=== PATIENT | male | born 1965 | race Caucasian/White ===

== ENCOUNTER 2021-12-24 15:21 | Emergency (ER) | payer OTHER, SELFPAY ==
[2021-12-24 15:23] VITALS: BMI 30.5
--- NOTE | 2021-12-24 15:24 | ECG_ITS ---
Test Reason : palpitations Blood Pressure : / mmHG Vent. Rate : 061 BPM Atrial Rate : 061 BPM P-R Int : 144 ms QRS Dur : 086 ms QT Int : 378 ms P-R-T Axes : 064 019 030 degrees QTc Int : 380 ms Normal sinus rhythm Possible Left atrial enlargement Borderline ECG No previous ECGs available Referred By: Generic ED Physician Electronically Signed By:SHILPI RUFF MD
[2021-12-24 15:25] VITALS: BP 141/88; PULSE 65; RESP 16; TEMP 36.9; O2SAT 98; BMI 30.5
[2021-12-24 16:51] LABS: Hematocrit 44.4 % (42.0-52.0); Hemoglobin 15.3 g/dl (14.0-18.0); Mean Corpuscular HGB Conc 34.5 g/dl (31.0-36.0); Mean Corpuscular Hemoglobin 32.8 pg (27.0-33.0); Mean Corpuscular Volume 95.3 fL (80.0-98.0); Mean Platelet Volume 9.1 fL (9.4-12.4); Platelet Count 189 X10*3/uL (160-400); Red Blood Count 4.66 X10*6/uL (4.60-5.80); Red Cell Distribution Width 11.9 % (11.0-16.0); White Blood Count 5.5 X10*3/uL (4.8-10.8)
[2021-12-24 17:06] LABS: Alanine Aminotransferase 30 U/L (0-40); Albumin Level 4.7 g/dL (3.5-5.0); Alkaline Phosphatase 69 U/L (39-117); Anion Gap 14 (12-20); Aspartate Amino Transferase 21 U/L (5-37); Bilirubin Total 0.5 mg/dL (0.0-1.0); Blood Urea Nitrogen 20 mg/dL (9-16); Calcium 9.4 mg/dL (8.4-10.2); Carbon Dioxide 27 mmol/L (22-29); Chloride 104 mmol/L (96-108); Creatinine Clr Calc Pharmacy 78.4; Estimated Glomerular Filt Rate > 60; Glucose Random 121 mg/dL (60-115); Potassium 4.3 mmol/L (3.3-5.1); Sodium 141 mmol/L (135-145); Total Protein 7.2 g/dL (6.5-8.0)
[2021-12-24 17:12] LABS: Troponin-I High Sensitivity < 3.5 ng/L (<3.5-35.0)
--- NOTE | 2021-12-24 19:45 | ED.ARRPALP ---
HPI - Arrhythmia/Palpitations General Chief Complaint: Arrhythmia/Palpitations Stated Complaint: heart palpitions Time Seen by Provider: 12/24/21 19:35 Source: patient Mode of arrival: ambulatory Limitations: no limitations History of Present Illness HPI narrative: Patient comes to the emergency room complaining of occasional palpitations and skipped heartbeats. Patient states that he does not have any chest pain or shortness of breath. Patient works out 5 days a week, usually during workouts he has no symptoms, notices more the palpitations/skipped heartbeats when he is at rest laying down. At this time, patient is asymptomatic. Related Data Allergies Allergy/AdvReac Type Severity Reaction Status Date / Time No Known Allergies Allergy Unverified 02/07/20 15:23 Review of Systems Review of Systems: Constitutional : No Weight loss, No Fever, No Chills, No Night Sweats, No Fatigue, No Malaise ENT/Mouth : No Hearing loss, No Ear Pain, No Nasal Congestion, No Sinus Pain, No Hoarseness, No sore throat, No Rhinorrhea, No Swallowing Difficulty Eyes: No Eye Pain, No Swelling, No Redness, No Foreign Body, No Discharge, No Vision Changes Cardiovascular : No Chest Pain, No SOB, No Dyspnea on Exertion, No Orthopnea, No Edema, occasional palpitations or skipped heartbeats Respiratory : No Cough, No Sputum, No Wheezing, No Smoke Exposure, No Dyspnea Gastrointestinal : No Nausea, No Vomiting, No Diarrhea, No Constipation, No abdominal Pain, No Hematochezia, No Melena Genitourinary : no irregular bleeding, No Dysuria, No Urinary Frequency, No Hematuria, No Urinary Incontinence, No Urgency, No Flank Pain, No Urinary Flow Changes, No Hesitancy Musculoskeletal : No joint pain, No Myalgias, No Joint Swelling Skin : No Skin Lesions, No rash Neuro : No Weakness, No Numbness, No Paresthesias, No Loss of Consciousness, No Dizziness, No Headache Psych : No Anxiety/Panic, No Depression, No SI/HI/AH/VH, No Social Issues, Heme/Lymph: No Bruising, No Bleeding,No Lymphadenopathy Endocrine : No Polyuria, No Polydipsia, No Temperature Intolerance PMFSH Social History Social History Advance Directives: No Advance Directives Information Provided: No Physical Exam Vital Signs: Vital Signs: Last Vital Signs Temp 98.4 F 12/24/21 15:25 Pulse 65 12/24/21 15:25 Resp 16 12/24/21 15:25 BP 141/88 H 12/24/21 15:25 Pulse Ox 98 12/24/21 15:25 O2 Del Method 12/24/21 15:25 BMI result Body Mass Index 30.5 Const: Other: Appearance: Alert. Oriented X3. No acute distress. Eyes: Pupils equal, round and reactive to light. ENT: Pharynx normal. Neck: Normal inspection. Neck supple. No lymph nodes noted. No crepitus CVS: Normal heart rate and rhythm. Pulses normal. Normal S1 and S2 Respiratory: No respiratory distress. Breath sounds normal. No Wheezing. No rales Abdomen: Soft and nontender. No rigidity. No distention. Skin: Skin warm and dry. Normal skin color. Normal skin turgor. Extremities: No lower extremity edema. No Lacerations. No Rash Neuro: Oriented X 3. No motor deficit. No sensory deficit. Moving all extremities. No slurred speech. CN 2 through 12 grossly intact Psych: calm, cooperative, normal affect Course Course Course Narrative: Patient has been in the monitor, patient is bradycardic. However, patient is athletic and works out every day. I discussed with the patient that he would benefit from a Holter monitor evaluation. Here in the emergency room, patient has been on the monitor and no PVCs or abnormalities have been captured EKG shows normal sinus rhythm, heart rate 61, no ST segment depressions or elevations, no T-wave inversion, QTC 380 MDM - Arrhythmia/Palpitations Lab Data Result diagrams: 12/24/21 16:45 12/24/21 16:45 Labs: Lab Results 12/24/21 12/24/21 12/24/21 Range/Units 16:45 16:45 16:45 WBC 5.5 (4.8-10.8) X10*3/uL RBC 4.66 (4.60-5.80) X10*6/uL Hgb 15.3 (14.0-18.0) g/dl Hct 44.4 (42.0-52.0) % MCV 95.3 (80.0-98.0) fL MCH 32.8 (27.0-33.0) pg MCHC 34.5 (31.0-36.0) g/dl RDW 11.9 (11.0-16.0) % Plt Count 189 (160-400) X10*3/uL MPV 9.1 L (9.4-12.4) fL Absolute Nucleated RBC 0.000 (0.0-0.012) X10*3/uL Nucleated RBC % (auto) 0.0 (0.0-0.2) /100WBC Sodium 141 (135-145) mmol/L Potassium 4.3 (3.3-5.1) mmol/L Chloride 104 (96-108) mmol/L Carbon Dioxide 27 (22-29) mmol/L Anion Gap 14 (12-20) BUN 20 H (9-16) mg/dL Creatinine 1.18 (0.5-1.4) mg/dL Estim Creat Clear Calc 78.4 Estimated GFR > 60 Random Glucose 121 H (60-115) mg/dL Calcium 9.4 (8.4-10.2) mg/dL Total Bilirubin 0.5 (0.0-1.0) mg/dL AST 21 (5-37) U/L ALT 30 (0-40) U/L Alkaline Phosphatase 69 (39-117) U/L Troponin I High Sens < 3.5 (<3.5-35.0) ng/L Total Protein 7.2 (6.5-8.0) g/dL Albumin 4.7 (3.5-5.0) g/dL Discharge Plan Discharge Clinical Impression: Palpitations Patient Disposition: Home, Self-Care Instructions: Heart Palpitations (ED) Additional Instructions: Please follow-up with your primary care physician tomorrow. If you have any worsening or new symptoms, please return to the emergency room or call 911 Referrals: Mahesh Steven MD [Physician] - 5 days
== END 2021-12-24 20:01 | disposition home or self-care (01) ==
PROVIDERS: Emergency Provider Emergency Medicine; PCP Internal Medicine
DX: R00.2 Palpitations (principal)
CPT/HCPCS: 36415; 80053; 84484; 85027; 93005; 99283

== ENCOUNTER → 2022-01-04 13:45 | Outpatient (BNVA) | payer OTHER, SELFPAY | PROVIDERS: PCP Internal Medicine; Visit Provider Physician Assistant Medical | DX: R00.2 Palpitations (principal) | CPT/HCPCS: 99203 ==

== ENCOUNTER 2022-01-27 08:23 | Outpatient (REF) | payer OTHER, SELFPAY ==
[2022-01-27 10:11] LABS: Cholesterol 210 mg/dL; HDL Cholesterol 45 mg/dL; LDL Cholesterol Calculated 131 mg/dl; Triglycerides 174 mg/dL
[2022-01-27 10:20] LABS: TSH reflex Free T4 1.41 uIU/mL (0.32-4.0)
== END 2022-01-27 08:24 | disposition home or self-care (01) ==
LOC: HO.LAB 08:23
PROVIDERS: PCP Internal Medicine; Visit Provider Internal Medicine Cardiovascular Disease
DX: R00.2 Palpitations (principal); I25.10 Atherosclerotic heart disease of native coronary artery without angina pectoris
CPT/HCPCS: 36415; 80061; 84443; 99202

== ENCOUNTER → 2022-01-28 09:24 | Outpatient (REF) | payer OTHER, SELFPAY ==
--- NOTE | 2022-01-28 09:26 | CA_ITS ---
Acquisition Time: 2022-01-28 09:38:00 Total Exercise Time: 00:14:09 Test Indications: CP Medications: SEE CHART Protocol: CARMEN Max HR: 171 BPM 103% of Pred: 166 BPM Max BP: 164/062 mmHG Max Work Load: 17.2 METS Exercise stress test with exercise 14 min 9 sec of Carmen protocol, achieving 103% MPHR 17.2 METs, without anginal symptoms, with frequent isolated PACs, with normotensive response to exercise, with EKG changes meeting criteria for ischemia which corrects quickly in recovery. Test reviewed with Dr Adamson EKG tracings reviewed with Dr Aadmson and will order a CTA or coronaries for further evaluation. Referred By: Murphy Adamson Overread By: RUTH CLEMENTS
== END ==
LOC: HO.CARD 09:24
PROVIDERS: PCP Internal Medicine; Visit Provider Internal Medicine Cardiovascular Disease
DX: R00.2 Palpitations (principal)
CPT/HCPCS: 93017

== ENCOUNTER 2022-02-23 05:56 | Outpatient (REF) | payer OTHER, SELFPAY ==
[2022-02-23 08:29] LABS: Anion Gap 17 (12-20); Blood Urea Nitrogen 19 mg/dL (9-16); Carbon Dioxide 25 mmol/L (22-29); Chloride 103 mmol/L (96-108); Estimated Glomerular Filt Rate > 60; Glucose Random 92 mg/dL (60-115); Potassium 4.2 mmol/L (3.3-5.1); Sodium 141 mmol/L (135-145)
== END 2022-02-23 05:57 | disposition home or self-care (01) ==
LOC: HO.LAB 05:56
PROVIDERS: PCP Internal Medicine; Visit Provider Nurse Practitioner Family
DX: R94.39 Abnormal result of other cardiovascular function study (principal); R07.89 Other chest pain
CPT/HCPCS: 36415; 80048

== ENCOUNTER → 2022-02-24 06:59 | Outpatient (REF) | payer OTHER, SELFPAY ==
--- NOTE | 2022-02-24 07:02 | HM_ITS ---
Conclusion: 1. Patient was monitored for total period of 3 days and 1 hour 2. Baseline was normal sinus rhythm with average heart of 64 beats per minute minimal heart rate of 40 beats per minute 3. Frequent sinus bradycardia with heart rate below 60 beats per minute 48% of the time 4. No significant pauses noted 5. Total of 5003 PACs accounting for 1.82% total beats account for frequent PACs 6. Patient reported 1 event without symptoms reported correlated with isolated PVCs which overall rare MTDD
--- NOTE | 2022-02-24 07:02 | CA_ITS ---
Transthoracic Echocardiogram Patient (Last, First, Middle): Joaquín Lundberg F Gender: Male Date of : 1965 Age: 56 Procedure Date: 02/24/2022 Procedure Type: Transthoracic Echocardiogram Location: OP Height: 172.72 cm Weight: 88.45 kg BSA: 2.02 m2 Heart Rate: 44 bpm BP: 135 / 85 mmHg Patient Assessment Coordinator: XIN Referring MD: Murphy Adamson MD Confectionery Drops Machine Operator: Murphy Adamson MD Symptoms: R00.2 - Palpitations Study Quality: Good ECG Rhythm: Bradycardia Conclusions: - Normal study Findings Left Ventricle Normal left ventricular size, thickness, and systolic function. The visually estimated ejection fraction is between 65-70%. Diastolic function is normal for age. Right Ventricle Normal right ventricular cavity size and systolic function. Atria Both atria are normal in size. There is lipomatous hypertrophy of the interatrial septum. There is no evidence of interatrial shunt. Aortic Valve Normal aortic valve structure and function. There is no aortic valve stenosis. There is no aortic valve regurgitation. Mitral Valve Normal mitral valve structure and function. There is trace mitral valve regurgitation. There is no mitral valve stenosis. Pulmonic Valve The pulmonic valve is likely normal. Tricuspid Valve Normal tricuspid valve structure. There is trace tricuspid valve regurgitation. The right ventricular systolic pressure is normal. The right ventricular systolic pressure is 20 mmHg. Normal right atrial pressure. There is no evidence of pulmonary hypertension. Great Vessels All visible segments of the aorta are normal in size. The pulmonary artery was not well visualized. Venous The inferior vena cava is normal in size and collapses greater than 50% with inspiration. Pericardium/Pleural There is no evidence of pericardial effusion. Prior Study Comparison no previous study in the last 5 years for comparison Measurements 2D Linear Measurements IVSd: 0.86 0.6-0.9/0.6-1.0 cm LVIDd: 4.35 3.9-5.3/4.2-5.9 cm LVIDd Index: 2.15 2.4-3.2/2.2-3.1 cm/m2 LVIDs: 2.71 2.0-3.6 cm LVPWd: 1.14 0.7-1.1 cm LA Diam: 3.40 2.7-3.8/3.0-4.0 cm LAIDs Index: 1.68 1.5-2.3 cm/m2 LV Mass: 180.94 67-162/88-224 g LV Mass Index: 89.57 43-95/49-115 g/m2 LVOT Diam: 2.10 3.0+(-)1.3 cm 2D Systolic Function EF 4C: 65.90 >55% EF 2C: 72.60 >55% EF BiP: 69.40 >55% Mitral Valve MV Pk E: 0.83 MV PK A: 0.55 MV Decel Time: 283.00 E/A: 1.50 E'Lateral: 13.60 E'Medial: 7.94 E/E' Med: 10.50 E/E' Lat: 6.10 PHT: 83.00 MVA PHT: 2.65 Decel Whitfield: 2.94 Aortic Valve AoV Pk Iain: 1.21 AoV Mn Iain: 0.80 AoV VTI: 0.27 AoV Pk Grad: 6.00 Aov Mn Grad: 3.00 JASON Cont.VTI: 3.00 LVOT LVOT Pk Iain: 1.13 LVOT Mn Iain: 0.71 LVOT VTI: 0.24 LVOT Pk Grad: 5.00 LVOT Mn Grad: 2.00 LVOT Diam: 2.10 LVOT Area: 3.46 Diastolic Function MV Pk E: 0.83 MV Pk A: 0.55 E/A: 1.50 E'Medial: 7.94 E/E' Med: 10.50 E' Laterial: 13.60 E/E' Lat: 6.10 Right Ventricle TAPSE (mm): 27.20 TVS' Iain: 11.60 Tricuspid Valve TR Pk Iain: 2.08 TR Pk Grad: 17.00 RA Press: 3.00 RVSP: 20.00 Great Vessels Aorta Sinus of Valsalva: 3.20 2.0-3.5 cm Ao Asc: 3.30 2.1-3.4 cm Pulmonary Valve PV Pk Iain: 0.94 Peak PV Grad: 4.00 Updated in Other Vendor System with Status of Final Murphy Adamson MD electronically signed on 02/24/2022 6:39:21 PM with status of Final
== END ==
LOC: HO.CARD 06:59
PROVIDERS: PCP Internal Medicine; Visit Provider Internal Medicine Cardiovascular Disease
DX: R00.2 Palpitations (principal)
CPT/HCPCS: 93242; 93306

== ENCOUNTER → 2022-04-20 13:45 | Outpatient (BNVA) | payer OTHER, SELFPAY | PROVIDERS: PCP Internal Medicine; Visit Provider Internal Medicine Cardiovascular Disease | DX: I49.1 Atrial premature depolarization (principal) | CPT/HCPCS: 99212 ==

== ENCOUNTER 2022-09-28 06:50 | Outpatient (REF) | payer BC, SELFPAY ==
[2022-09-28 06:58] LABS: MANUAL DIFF FLAG NO
[2022-09-28 07:35] LABS: Basophils Percent Auto 0.4 % (0-2); Eosinophils Absolute Auto 0.1 X10*3/uL (0.0-0.4); Eosinophils Percent Auto 1.7 % (0-4); Hematocrit 43.4 % (42.0-52.0); Imm Gran Abs Auto 0.01 X10*3/uL (0.00-0.03); Imm Gran Pct Auto 0.2 % (0.0-0.4); Lymphocytes Absolute Auto 2.2 X10*3/uL (1.2-4.9); Lymphocytes Percent Auto 42.6 % (20-40); Mean Corpuscular HGB Conc 34.6 g/dl (31.0-36.0); Mean Corpuscular Hemoglobin 32.6 pg (27.0-33.0); Mean Corpuscular Volume 94.3 fL (80.0-98.0); Mean Platelet Volume 9.5 fL (9.4-12.4); Monocytes Absolute Auto 0.6 X10*3/uL (0.1-1.2); Monocytes Percent Auto 11.5 % (2-11); Neutrophils Absolute Auto 2.3 x10*3/uL (2.0-8.3); Neutrophils Percent Auto 43.6 % (45-73); Platelet Count 188 X10*3/uL (160-400); Red Cell Distribution Width 11.9 % (11.0-16.0); White Blood Count 5.2 X10*3/uL (4.8-10.8)
[2022-09-28 12:08] LABS: Alanine Aminotransferase 31 U/L (0-40); Albumin Level 4.6 g/dL (3.5-5.0); Alkaline Phosphatase 60 U/L (39-117); Anion Gap 13 (12-20); Aspartate Amino Transferase 24 U/L (5-37); Bilirubin Total 1.2 mg/dL (0.0-1.0); Blood Urea Nitrogen 21 mg/dL (9-16); Calcium 9.4 mg/dL (8.4-10.2); Carbon Dioxide 26 mmol/L (22-29); Chloride 107 mmol/L (96-108); Cholesterol 182 mg/dL; Estimated Glomerular Filt Rate 57; Glucose Random 95 mg/dL (60-115); HDL Cholesterol 42 mg/dL; LDL Cholesterol Calculated 106 mg/dl; Potassium 4.4 mmol/L (3.3-5.1); Sodium 142 mmol/L (135-145); Total Protein 6.7 g/dL (6.5-8.0); Triglycerides 173 mg/dL
[2022-09-28 12:31] LABS: Prostate Specific Antigen 0.24 ng/mL (<0.05-4.0); Vitamin D 25-OH Total 64.1 ng/mL (>30)
== END 2022-09-28 06:51 | disposition home or self-care (01) ==
LOC: HO.LAB 06:50
PROVIDERS: PCP Internal Medicine; Visit Provider Internal Medicine
DX: I10 Essential (primary) hypertension (principal); Z12.5 Encounter for screening for malignant neoplasm of prostate; Z13.21 Encounter for screening for nutritional disorder
CPT/HCPCS: 36415; 80053; 80061; 82306; 84153; 85025

== ENCOUNTER 2023-08-02 06:03 | Outpatient (REF) | payer BC, SELFPAY ==
[2023-08-02 06:25] LABS: MANUAL DIFF FLAG NO
[2023-08-02 07:17] LABS: Basophils Percent Auto 0.5 % (0-2); Eosinophils Absolute Auto 0.1 X10*3/uL (0.0-0.4); Eosinophils Percent Auto 1.5 % (0-4); Hematocrit 45.5 % (42.0-52.0); Hemoglobin 15.9 g/dl (14.0-18.0); Imm Gran Abs Auto 0.01 X10*3/uL (0.00-0.03); Imm Gran Pct Auto 0.2 % (0.0-0.4); Lymphocytes Absolute Auto 2.8 X10*3/uL (1.2-4.9); Lymphocytes Percent Auto 46.5 % (20-40); Mean Corpuscular HGB Conc 34.9 g/dl (31.0-36.0); Mean Corpuscular Hemoglobin 33.3 pg (27.0-33.0); Mean Corpuscular Volume 95.4 fL (80.0-98.0); Mean Platelet Volume 9.4 fL (9.4-12.4); Monocytes Absolute Auto 0.7 X10*3/uL (0.1-1.2); Monocytes Percent Auto 11.2 % (2-11); Neutrophils Absolute Auto 2.4 x10*3/uL (2.0-8.3); Neutrophils Percent Auto 40.1 % (45-73); Platelet Count 218 X10*3/uL (160-400); Red Blood Count 4.77 X10*6/uL (4.60-5.80)
[2023-08-02 07:44] LABS: Alanine Aminotransferase 36 U/L (0-40); Albumin Level 4.6 g/dL (3.5-5.0); Alkaline Phosphatase 70 U/L (39-117); Anion Gap 12 (12-20); Aspartate Amino Transferase 25 U/L (5-37); Bilirubin Total 0.5 mg/dL (0.0-1.0); Blood Urea Nitrogen 20 mg/dL (9-16); Calcium 9.6 mg/dL (8.4-10.2); Carbon Dioxide 28 mmol/L (22-29); Chloride 107 mmol/L (96-108); Cholesterol 205 mg/dL (<200); Estimated Glomerular Filt Rate > 60; Glucose Random 103 mg/dL (60-115); HDL Cholesterol 46 mg/dL (>40); LDL Cholesterol Calculated 136 mg/dL (<100); Potassium 4.9 mmol/L (3.3-5.1); Sodium 142 mmol/L (135-145); Total Protein 7.2 g/dL (6.5-8.0); Triglycerides 116 mg/dL (<150)
[2023-08-02 08:01] LABS: Prostate Specific Antigen 0.39 ng/mL (<0.05-4.0)
== END 2023-08-02 06:04 | disposition home or self-care (01) ==
LOC: HO.LAB 06:03
PROVIDERS: PCP Internal Medicine; Visit Provider Internal Medicine
DX: Z12.5 Encounter for screening for malignant neoplasm of prostate (principal); I10 Essential (primary) hypertension
CPT/HCPCS: 36415; 80053; 80061; 84153; 85025

== ENCOUNTER 2023-08-09 14:45 | Outpatient (REF) | payer BC, SELFPAY ==
[2023-08-15 19:49] LABS: Testosterone, Free 80.1 pg/mL (35.0-155.0); Testosterone, Total 616 ng/dL (250-1100)
== END 2023-08-09 14:46 | disposition home or self-care (01) ==
LOC: HO.LAB 14:45
PROVIDERS: PCP Internal Medicine; Visit Provider Internal Medicine
DX: R53.83 Other fatigue (principal)
CPT/HCPCS: 36415; 84402; 84403

== ENCOUNTER 2023-08-24 09:59 | Outpatient (REF) | payer BC, SELFPAY ==
[2023-08-25 08:49] LABS: Lyme Abs Screen <0.90 index
[2023-08-29 12:39] LABS: A phagocytophilum IgG <1:64 (<1:64); A phagocytophilum IgM <1:20 (<1:20)
== END 2023-08-24 10:00 | disposition home or self-care (01) ==
LOC: HO.MANLDS 09:59
PROVIDERS: Visit Provider Physician Assistant
DX: T14.8XXA Other injury of unspecified body region, initial encounter (principal); W57.XXXA Bitten or stung by nonvenomous insect and other nonvenomous arthropods, initial encounter
CPT/HCPCS: 36415; 86617; 86618; 86666

== ENCOUNTER 2025-02-12 07:51 | Outpatient (REF) | payer BC, SELFPAY ==
--- OUTSIDE RECORDS SUMMARY | 2025-02-12 07:53 | XMS_ITS | Clinical Summary ---
Author Organization [facility] Address [address] [place] [phone] Phone Care Team Providers Care Steeplechase Jockey Name Role Phone Emily Rajan DO Primary Care Provider [phone] Emily Rajan DO Unavailable Allergies Active Allergy Reactions Criticality Noted Date Comments Other 12/04/2024 Almonds wheezing Medications amLODIPine (NORVASC) 5 MG tablet Take by mouth daily. 11/15/2024 Active diclofenac sodium (VOLTAREN) 75 MG EC tablet Take 75 mg by mouth 2 (two) times a day. 11/30/2024 Active lisinopril (PRINIVIL,ZESTRI L) 5 MG tablet Take 5 mg by mouth daily. Active Encounters Date Type Department Care Team Description 12/07/2024 8:37 AM EDT Anesthesia Event [facility] Endoscopy Admitting Dept Virtual Department [address] [place] [phone] Fabiola Preciado MD 12/07/2024 8:30 AM EDT - 12/07/2024 9:00 AM EDT Surgery [facility] Admitting Dept Virtual Department [address] [place] [phone] Martell Hernandez MD COLONOSCOPY 12/07/2024 7:20 AM EDT - 12/07/2024 9:40 AM EDT Hospital Encounter [facility] Admitting Dept Virtual Department [address] [place] [phone] Martell Hernandez MD Discharge Disposition: Home or Self Care 12/07/2024 Procedure Pass [facility] Endoscopy Admitting Dept Virtual Department [address] [place] [address] 12/03/2024 2:30 PM EDT Pre-Admission Testing Pre Procedure Evaluation [address] [place] [address] Martell Hernandez MD from Last 3 Months Social History Tobacco Use Types Packs/Day Years Used Date Smoking Tobacco: Never Smokeless Tobacco: Never Tobacco Cessation:Counseling Given: Not Answered Alcohol Use Standard Drinks/Week Comments Not Currently 0 (1 standard drink = 0.6 oz pure alcohol) average 5-8/ week, on weekends socially Education Answer Date Recorded Are you interested in more education? Not on carlo e 08/28/2023 Are you concerned about learning? Not on file 08/28/2023 No 08/28/2023 No 08/28/2023 Digital Access Answer Date Recorded No 08/28/2023 No 08/28/2023 Reliable internet access at home? Not on file 08/28/2023 Device with a working camera? Not on file Intimate Partner Violence Answer Date R ecorded Are you denied basic needs s uch as food, clothing, or medical care? No 12/07/2024 In the past 12 months have y ou been in a relationship with a person who hurts, threatens, or tries to control you? No 12/07/2024 Are you denied basic needs s uch as food, clothing, or medical care? No 12/07/2024 In the past 12 months have y ou been in a relationship with a person who hurts, threatens, or tries to control you? No 12/07/2024 Sex and Gender Information Value Date Recorded Sex Assigned at Not on file Legal Sex Male 9:38 PM EDT Gender Identity Not on file Sexual Orientation Not on file Last Filed Vital Signs Vital Sign Reading Time Taken Comments Blood Pressure 117/78 12/07/2024 9:15 AM EDT Pulse 50 12/07/2024 9:15 AM EDT Temperature 35.8 C (96.5 F) 12/07/2024 9:01 AM EDT Respiratory Rate 12 12/07/2024 9:15 AM EDT Oxygen Saturation 99% 12/07/2024 9:15 AM EDT Inhaled Oxygen Concentration - - Weight 88.5 kg (195 lb) 12/04/2024 11:13 AM EDT Height 174 cm (5' 8.5 ) 03/04/2011 11:18 AM EDT Body Mass Index - - Plan of Treatment Health Maintenance Due Date Last Done Comments CREATININE LEVEL 1965 POTASSIUM LEVEL 1965 DEPRESSION SCREENING 1979 HEPATITIS C SCREENING 1985 HIV ONE-TIME SCREENING (18-6 5 YEARS) 1985 COLOGUARD 2012 FIT TEST 2012 FOBT 2012 SIGMOIDOSCOPY 2012 VIRTUAL COLONOSCOPY 2012 PNEUMOCOCCAL VACCINES (50+ years) (1 of 1 - PCV) 2017 ZOSTER VACCINES (1 of 2) 2017 INFLUENZA VACCINE (#1) 2024 , 03/09/2018, 07/11/2017 COVID-19 VACCINE (1 - 2023-2 5 season) 2025 LIPID PANEL 08/01/2028 08/02/2023, 09/28/2022, 09/28/2022 Adult Td,Tdap Booster 08/27/2032 08/27/2022 COLONOSCOPY 12/07/2034 12/07/2024 COLORECTAL CANCER SCREENING 12/07/2034 SMOKING STATUS SCREENING (On ce After 26 Yrs) Completed 12/07/2024 HEPATITIS A VACCINES Aged Out No long er eligible based on patient's age to complete this topic HIB VACCINES Aged Out No longer eligi ble based on patient's age to complete this topic MENINGOCOCCAL VACCINES (ACWY) Aged Out No longer eligible based on patient's age to complete this topic MENINGOCOCCAL VACCINES (B) Aged Out N o longer eligible based on patient's age to complete this topic Medical Devices Not on file Procedures Procedure Name Priority Date/Time Associated Diagnosis Comments ND COLSC FLX W/RMVL OF TUMOR POLYP LESION SNARE TQ 12/07/2024 8:36 AM EDT Family history of hyperplastic colonic polyp Special Needs DIRECT ND COLONOSCOPY W/BIOPSY SINGLE/MULTIPLE 12/07/2024 8:36 AM EDT Family history of hyperplastic colonic polyp Special Needs DIRECT ND COLONOSCOPY FLX DX W/COLLJ SPEC WHEN PFRMD 12/07/2024 8:36 AM EDT Family history of hyperplastic colonic polyp Special Needs DIRECT ENDOSCOPY, COLON 12/07/2024 8:30 AM EDT ANATOMIC PATHOLOGY Routine 12/07/2024 12 :00 AM EDT from Last 3 Months Results * ENDOSCOPY, COLON (12/07/2024 8:30 AM EDT) Narrative Transcriptions Martell Hernandez MD - 12/07/2024 8:30 AM EDT [facility] Patient Name: Lucien Aguila Attending MD:: MARTELL HERNANDEZ MD, Procedure Date: 12/07/2024 8:30 AM Date of : 1965 Age: 59 Admit Type: Outpatient Gender: Male Room: [place] [address] Referring MD: EMILY RAJAN DO Exam Type: Colonoscopy Indications: Screening patient at increased risk: Family historyof 1st-degree relative with colorectal cancer at age60 years (or older) Medications: Monitored Anesthesia Care Procedure: Informed consent was obtained from the patientafter discussion of the indications, limitations, alternatives, benefits, and risks of the procedure. Risks specifically discussed include but are not limited to medication reactions, missed lesions, bleeding, perforation, or the need for emergent surgery. Throughout the procedure, the patient's blood pressure, pulse, end-tidal CO2, and oxygensaturations were monitored continuously. The Olympus adult variable colonoscope [id number] #1 was introduced through the anus and advanced to the terminal ileum. The colonoscopy was performedwithout difficulty. The patient tolerated the procedurewell. The quality of the bowel preparation was good. Anatomical landmarks were photographed. Complications: No immediate complications. Estimated blood loss:None. Findings: The perianal and digital rectal examinations were normal. A 3 mm polyp was found in the ascending colon. The polyp was sessile. The polyp was removed with acold snare. Resection and retrieval were complete. Base fulgurated with hot snare to assure completeremoval The rectum, recto-sigmoid colon, sigmoid colon, descending colon, splenic flexure, transversecolon, hepatic flexure, cecum, appendiceal orifice,ileocecal valve, ileum, rectum (on retroflexion) andascending colon (on retroflexion) appeared normal. Impression: - One 3 mm polyp in the ascending colon, removedwith a cold snare. Resected and retrieved. - The rectum (on retroflexion), ascending colon (on retroflexion), rectum, sigmoid colon, descending colon, splenic flexure, transverse colon, hepatic flexure, cecum, recto-sigmoid colon, ileocecalvalve, appendiceal orifice and terminal ileum arenormal. Recommendation: - Discharge patient to home. - Resume previous diet. - Continue present medications. - Await pathology results. - Repeat colonoscopy in 5 years for surveillance. - I will send you pathology results by letter. If you do not getresults in 3 weeks telephone my office. MARTELL HERNANDEZ MD 12/07/2024 8:59:15 AM This report has been signed electronically. Number of Addenda: 0 Note Initiated On: 12/07/2024 8:30 AM Procedure Code(s): --- Professional --- 29070, Colonoscopy, flexible; with removal of tumor(s), polyp(s), or other lesion(s) by snare technique --- Technical --- 18646, Colonoscopy, flexible; with removal of tumor(s), polyp(s), or other lesion(s) by snare technique Diagnosis Code(s): --- Professional --- Z80.0, Family history of malignant neoplasm of digestive organs D12.2, Benign neoplasm of ascending colon --- Technical --- Z80.0, Family history of malignant neoplasm of digestive organs D12.2, Benign neoplasm of ascending colon CPT copyright 2021 [employer]. All rights reserved. The codes documented in this report are preliminary and upon structural steel worker reviewmay be revised to meet current compliance requirements. Procedure Date: 12/07/2024 8:30:[address] [place] [address] us Emily Rajan DO GI PROCEDURE ORDERABLES Final Re sult * Anatomic Pathology (12/07/2024 12:00 AM EDT) 12/07/2024 12/07/2024 10: 45 AM EDT Narrative SEE NARRATIVE - 12/10/2024 2:04 PM EDT [address] [address] Bending Shed Worker: Drake Alexis MD Surgical Pathology Report FINAL PATHOLOGIC DIAGNOSIS: ASCENDING COLON POLYP: Hyperplastic polyp with acute inflammation. Electronically Signed Out By Nadia Santamaria MD By his/her signature above, the pathologist listed as making the Final Diagnosis certifies that he/she has personally reviewed this case and confirmed or corrected the diagnosis. CLINICAL HISTORY Family history of hyperplastic colonic polyp [Z83.711] SPECIMENS SUBMITTED: A: ASCENDING COLON POLYP GROSS DESCRIPTION ASCENDING COLON POLYP: Received in formalin is a 0.5 x 0.3 x 0.2 cm irregular portion of gonzales-pink soft tissue which is submitted in toto in single cassette labeled A1. Grossed by: COLLEEN Dawson, PA(ASCP) T 12/07/2024 Grossing Staff: [id number] Patient Name: LUCIEN AGUILA : 1965 (Age: 59) Sex: M Institution: [facility] Location: [facility] Date of Operation: 12/07/2024 Date of Reported: 12/10/2024 14:04 Results To: Martell Hernandez MD, BS RAFAEL Faustin DO us Martell Hernandez MD PATHOLOGY ORDERABLES Final R esult SEE NARRATIVE from Last 3 Months Insurance [facility] [address] [place] Care Teams Steeplechase Jockey Relationship Specialty Start Date End Date Emily Rajan DO PCP - General 03/08/17 Emily Rajan DO [address] [place] [address] Insurance Assigned Provider 08/27/23 Additional Source Comments The information contained in this document represents components of the legal health record. It is not the complete legal health record.[facility]
--- OUTSIDE RECORDS SUMMARY | 2025-02-12 07:53 | XMS_ITS | Encounter Summary ---
Author Organization [facility] Address [address] [address] Phone Care Team Providers Care Collections Technician Name Role Phone Chester Pittman DO Primary Care Provider [phone] Chester Pittman DO Unavailable Encounter Details Date Type Department Care Team (Late st Contact Info) Description 12/07/2024 Procedure Pass [facility] Endoscopy Admitting Dept Virtual Department [address] [place] [address] Social History Tobacco Use Types Packs/Day Years Used Date Smoking Tobacco: Never Smokeless Tobacco: Never Alcohol Use Standard Drinks/Week Comments Not Currently [...] on file Sexual Orientation Not on file documented as of this encounter Plan of Treatment Not on file documented as of this encounter Visit Diagnoses Not on filedocumented in this encounter Care Teams Collections Technician Relationship Specialty Start Date End Date Chester Pittman DO PCP - General 03/08/17 Chester Pittman DO [address] [place] [address] Insurance Assigned Provider 08/27/23 documented as of this encounter Additional Source Comments The information contained in this document represents components of the legal health record. It is not the complete legal health record.[facility]
--- OUTSIDE RECORDS SUMMARY | 2025-02-12 07:53 | XMS_ITS | Encounter Summary ---
Author Organization [facility] Address [address] [address] Phone Care Team Providers Care Machine Adjuster Name Role Phone Chester Pittman DO Primary Care Provider [phone] Zain Chester Myrick DO Unavailable Zain Chester Myrick DO Unavailable Encounter Details Date Type Department Care Team (Late st Contact Info) Description 11/01/2017 Ancillary Orders [facility] External Provider Virtual Department [address] [place] [address] Mariana Mahan PA-C [address] [place] [address] Social History Tobacco Use Types Packs/Day Years Used Date Smoking Tobacco: Never Assessed Sex and Gender Information Value Date Recorded Sex Assigned at Not on file Legal Sex Male 9:38 PM EDT Gender Identity Not on file Sexual Orientation Not on file documented as of this encounter Plan of Treatment Not on file documented as of this encounter Visit Diagnoses Not on filedocumented in this encounter Care Teams Machine Adjuster Relationship Specialty Start Date End Date Chester Pittman DO PCP - General 03/08/17 Chester Pittman DO [address] [place] [address] Insurance Assigned Provider 08/29/1910/31 Chester Pittman DO [address] [place] [address] [email or web address] Insurance Assigned Provider 08/27/23 documented as of this encounter Additional Source Comments The information contained in this document represents components of the legal health record. It is not the complete legal health record.[facility]
--- OUTSIDE RECORDS SUMMARY | 2025-02-12 07:54 | XMS_ITS | Encounter Summary ---
Author Organization [facility] Address [address] [address] Phone Care Team Providers Care Forest Ranger Technician Name Role Phone Chester Pittman DO Primary Care Provider [phone] Zain Chester Myrick DO Unavailable Zain Chester Myrick DO Unavailable Encounter Details Date Type Department Care Team (Late st Contact Info) Description 11/14/2017 Ancillary Orders [facility] External Provider Virtual Department [address] [place] [address] Mariana Mahan PA-C [address] [place] [address] Social History Tobacco Use Types Packs/Day Years [...] on filedocumented in this encounter Care Teams Forest Ranger Technician Relationship Specialty Start Date End Date Chester Pittman DO PCP - General 03/08/17 Chester Pittman DO [address] [place] [id number] Insurance Assigned Provider 08/[birth year]10[birth year] Chester Pittman DO [address] [place] [address] [email or web address] Insurance Assigned Provider 08/27/23 documented as of this encounter Additional Source Comments The information contained in this document represents components of the legal health record. It is not the complete legal health record.[facility]
[2025-02-12 13:41] LABS: MANUAL DIFF FLAG NO
[2025-02-12 13:44] LABS: Hematocrit 44.4 % (42.0-52.0); Hemoglobin 15.6 g/dl (14.0-18.0); Imm Gran Abs Auto 0.01 X10*3/uL (0.00-0.03); Imm Gran Pct Auto 0.2 % (0.0-0.4); Lymphocytes Absolute Auto 2.3 X10*3/uL (1.2-4.9); Mean Corpuscular HGB Conc 35.1 g/dl (31.0-36.0); Mean Corpuscular Hemoglobin 33.3 pg (27.0-33.0); Mean Corpuscular Volume 94.7 fL (80.0-98.0); NRBC Abs Auto 0.000 X10*3/uL (0.0-0.012); NRBC Pct Auto 0.0 /100WBC (0.0-0.2); Platelet Count 234 X10*3/uL (160-400); Red Blood Count 4.69 X10*6/uL (4.60-5.80); White Blood Count 5.8 X10*3/uL (4.8-10.8)
[2025-02-12 14:13] LABS: Albumin Level 5.1 g/dL (3.5-5.0); Alkaline Phosphatase 77 U/L (39-117); Anion Gap 12 (12-20); Aspartate Amino Transferase 32 U/L (5-37); Blood Urea Nitrogen 17 mg/dL (9-16); Calcium 9.7 mg/dL (8.4-10.2); Carbon Dioxide 28 mmol/L (22-29); Chloride 106 mmol/L (96-108); Cholesterol 241 mg/dL (<200); Estimated Glomerular Filt Rate > 60; HDL Cholesterol 50 mg/dL (>40); Potassium 4.8 mmol/L (3.3-5.1); Sodium 141 mmol/L (135-145); Total Protein 7.4 g/dL (6.5-8.0); Triglycerides 113 mg/dL (<150)
[2025-02-12 14:38] LABS: Alanine Aminotransferase 37 U/L (0-40)
[2025-02-12 14:42] LABS: Prostate Specific Antigen 0.45 ng/mL (<0.05-4.0)
== END 2025-02-12 07:52 | disposition home or self-care (01) ==
LOC: HO.MANLDS 07:51
PROVIDERS: Visit Provider Internal Medicine
DX: Z12.5 Encounter for screening for malignant neoplasm of prostate (principal); I10 Essential (primary) hypertension
CPT/HCPCS: 36415; 80053; 80061; 84153; 85025

== ENCOUNTER 2025-03-12 06:02 | Outpatient (REF) | payer BC, SELFPAY ==
--- NOTE | ~2025-03-12 | XR_ITS ---
EXAMINATION: XR KNEE 3 VIEWS RIGHT HISTORY: Pain in right knee COMPARISON: There are no prior studies available for comparison. FINDINGS: Three views of the right knee are submitted. Osseous mineralization is normal. There is no fracture or dislocation. The joint spaces are preserved. The soft tissues are unremarkable. There is no joint effusion. XR/XR knee RT 3V IMPRESSION: Unremarkable examination of the right knee. Electronically signed by: Jose David Stephenson MD 03/12/2025 07:12 AM EDT
--- OUTSIDE RECORDS SUMMARY | 2025-03-12 06:04 | XMS_ITS | Encounter Summary ---
Author Organization [facility] Address [address] [address] Phone Care Team Providers Care Engineering Intern Name Role Phone Chester Pittman DO Primary Care Provider [phone] Zain Chester Myrick DO Unavailable Chester Pittman DO Unavailable Encounter Details Date Type Department Care Team (Late st Contact Info) Description 11/01/2017 Ancillary Orders [facility] External Provider Virtual Department [address] [place] [address] Mariana Mahan PA-C [address] [place] [address] [email or web address] Social History Tobacco Use Types Packs/Day Years [...] on filedocumented in this encounter Care Teams Engineering Intern Relationship Specialty Start Date End Date Chester Pittman DO PCP - General 03/08/17 Chester Pittman DO [address] [place] [address] [place] [address] Insurance Assigned Provider 08/29/[birth year]10/31 Chester Pittman DO [address] [place] [address] [email or web address] Insurance Assigned Provider 08/27/23 documented as of this encounter Additional Source Comments The information contained in this document represents components of the legal health record. It is not the complete legal health record.[facility]
--- OUTSIDE RECORDS SUMMARY | 2025-03-12 06:05 | XMS_ITS | Encounter Summary ---
Author Organization [facility] Address [address] [address] Phone Care Team Providers Care Maintenance Fitter Name Role Phone Chester Pittman DO Primary Care Provider [phone] Chester Pittman DO Unavailable Encounter Details Date Type Department Care Team (Late st Contact Info) Description 12/07/2024 Procedure Pass [facility] Endoscopy Admitting Dept Virtual Department [address] [place] [address] Social History Tobacco Use Types Packs/Day Years [...] on filedocumented in this encounter Care Teams Maintenance Fitter Relationship Specialty Start Date End Date Chester Pittman DO PCP - General 03/08/17 Chester Pittman DO [address] [place] [address] Insurance Assigned Provider 08/27/23 documented as of this encounter Additional Source Comments The information contained in this document represents components of the legal health record. It is not the complete legal health record.[facility]
--- OUTSIDE RECORDS SUMMARY | 2025-03-12 06:05 | XMS_ITS | Data Portability ---
Author Organization [facility], Telehealth Patient Home Address [address] [place] [address] Assessment Encounter Date Assessment Date Assessment LastModified by Organization Details LastModified Time 04/18/2024 04/18/2024 [id number] [place] [id number] (HOME CARE SPECIALIST) MDM MODERATE MUST MEET 2 OUT OF 3 ELEMENTS: PROBLEMS, DATA OR RISK ELEMENT 1: PROBLEMS ADDRESSED 1 OR MORE CHRONIC ILLNESS WITH EXACERBATION OR 2 OR MORE STABLE CHRONIC ILLNESSES OR 1 UNDIAGNOSED NEW PROBLEM OR 1 ACUTE ILLNESS W/SYMPTOMS OR 1 ACUTE COMPLICATED INJURY ELEMENT 2: DATA MUST MEET 1 OF 3 CATEGORIES CATEGORY 1: REVIEW OF PRIOR EXTERNAL NOTES, REVIEW OF RESULTS, ORDERING OF EACH TEST, ASSESSMENT REQUIRING INDEPENDENT HISTORIAN OR CATEGORY 2: INDEPENDENT INTERPRETATION OF TESTS BY ANOTHER PHYSICIAN OR SPECIALIST OR CATEGORY 3: DISCUSSION OF MGT OR TEST INTERPRETATION W/EXTERNAL PHYSICIAN OR SPECIALIST ELEMENT 3: RISK RISK OF COMPLICATIONS AND/OR MORBIDITY OR MORTALITY OF PATIENT MANAGEMENT PROVIDER MUST THOROUGHLY DOCUMENT EACH ELEMENT THAT IS COVERED Not available 04/18/2024 10:03:44 Plan of Treatment Reminders Order Date Submit Date Provider Last Modified By Organization Details Last Modified Time Details Appointments None recorded. Lab lyme disease igg+igm, serum, reflex western blot 2023 024 [facility], [address] [place] [address], [place], [address], 4 11:18:26 anaplasma phagocytoph ilum (hga/hge) igg+igm Ab, serum 2023 024 [facility], [address] [place] [address], [place], [address], 4 11:40:05 testosteron e, total, serum 2023 024 [facility], [address] [facility], [place], [address], 4 11:14:32 Referral None recorded. Procedures None recorded. Surgeries None recorded. Imaging None recorded. Medication Orders diclofenac sodium 75 mg tablet,antonieta yed release [address] [id number], [address] [place], [place], [id number], 5 14:05:01 doxycycline hyclate 100 mg tablet [address] [id number], [address] [place], [place], [id number], 5 14:05:19 Patient TargetsNo targets recorded. Patient Instructions Encounter Date Encounter Id Patient Instructions Last Modified By Organization Details Last Modified Time 08/09/2023 [id number] hoarseness: care instructions Not available 08/09/2023 11:18:01 Reason for Referral None Reported. Results Created Date Observation Date Name Description Value Unit Range Abnormal Flag Note LastModifiedBy Organization Detail LastModifiedTime Result Notes None recorded. 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 progressi ng to the point of axilosubc lavian vein thrombosi s August KalliBRADYLILLIAN [address] [place], [address], [facility] 8 16:10:38 Palpitat ions 27075907 Active 2021 DEMARCO ELMORE [address] [place], [address], [facility] 2 14:58:36 Sinus bradycar jesse 09531642 Active 2021 DEMARCO ELMORE [address] [place], [address], [facility] 2 09:52:33 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 2022 Chester Pittman, DO [address] [place] [address], [address], [facility] 3 12:42:13 [facility] hyperten princess 79683355 Active 2022 Chester Pittman, DO [address] [place] [address], [address], [facility] 5 14:45:08 Spasm of back muscles 105056330 Active 2022 Chester Pittman, DO [address] [place] [address], [address], [facility] 3 14:38:00 Allergic urticari a 94911851 Active 2022 Chester Pittman, DO [address] [place] [address], [address], [facility] 3 22:44:51 Hoarse 43013939 Active 2023 Chester Pittman, DO [address] [place] [address], [address], [facility] 4 11:15:49 Fatigue 81265879 Active 2023 Chester Pittman, DO [address] [place] [address], [address], [facility] 4 11:17:53 Derangem ent of medial meniscus of left knee 89310357318 9108 Active 2023 Chester Pittman, DO [address] [place] [address], [address], [facility] 4 09:59:11 Left lateral elbow tendinop athy 07619582062 9100 Active 2024 DEMARCO ELMORE [address] [place], [address], [facility] 5 10:12:44 Right inguinal pain 47061266338 768908 Active 2024 DEMARCO ELMORE [address] [place] [address], [address], [facility] 5 10:14:11 Bilatera l lateral elbow tendinop athy 85754481333 594123 Active 2024 Chester Pittman DO [address] [place] [address], [address], [facility] 5 14:49:33 Hypercho lesterol emia 38664097 Active 2024 Chester Pittman DO [address] [place] [address], [address], [facility] 5 14:54:05 Pain of right knee joint 21652669027 4100 Active 2024 Chester Pittman DO [address] [place] [address], [address], [facility] 5 14:56:15 Problem Notes None recorded. Procedures Surgical History Date Name Laterality Status Provider Name and Address Organization Details Recorded Time 08/25/19 19 colonoscopy completed Chester Pittman DO [address] [place] [address], [address], [facility] 08/24/2018 19:16:20 Imaging Results None recorded. Procedure Notes None recorded. Medical Equipment None Reported. Allergies No known drug allergies Medications Name Sig Start Date Stop Date Status Note LastModified by Organization Details LastModified Time cyclobenzap rine 10 mg tablet TAKE 1 TABLET BY MOUTH THREE TIMES DAILY FOR 10 DAYS NEEDED 02/08 completed Not Available Not Available Not Available clindamycin HCl 300 mg capsule 03/14 completed Not Available Not Available Not Available Anucort-HC 25 mg suppository Insert 1 supposito ry twice a day by rectal route for 12 days. 07/07 completed Not Available Not Available Not Available amlodipine 5 mg tablet TAKE 1 TABLET BY MOUTH EVERY DAY active Not Available Not Available No t Available cephalexin 500 mg capsule 03/14 completed Not Available Not Available Not Available diclofenac sodium 75 mg tablet,antonieta yed release TAKE 1 TABLET BY MOUTH TWICE DAILY WITH MEAL 02/13 completed Not Available Not Available Not Available bisacodyl 5 mg tablet,antonieta yed release 12/22 completed Not Available Not Available Not Available lisinopril 5 mg tablet TAKE 1 TABLET BY MOUTH EVERY DAY active Not Available Not Available No t Available doxycycline hyclate 100 mg tablet TAKE 1 TABLET BY MOUTH TWICE DAILY FOR 10 DAYS 02/13 completed Not Available Not Available Not Available Laxative (bisacodyl) 5 mg tablet TAKE 4 TABLETS BY MOUTH ONCE. 02/13 completed Not Available Not Available Not Available GaviLyte-G 236 gram-22.74 gram-6.74 gram-5.86 gram oral solution MIX AND DRINK DIRECTED 02/13 completed Not Available Not Available Not Available Fluvirin 45 mcg (15 mcg x 3)/0.5 mL intramuscul ar suspension 03/14 completed Not Available Not Available Not Available Fluzone Quad (PF) 60 mcg(15 mcgx4)/0.5 mL intramuscul ar syringe 07/07 completed Not Available Not Available Not Available Flucelvax Quad (PF) 60 mcg (15 mcg x 4)/0.5 mL IM syringe 06/25 completed Not Available Not Available Not Available Flucelvax Quad 60 mcg (15 mcg x 4)/0.5 mL intramuscul ar susp PHARMACY ADMINISTE [facility] 06/25 completed Not Available Not Available Not Available Vitals Date Recorded Body height Body mass index (BMI) Body weight Heart rate Oxygen saturation Oxygen saturation in Arterial blood by Pulse oximetry Systolic And Diastolic Provider Name and Address Organization Details Last Updated DateTime 4 171.45 cm 30.2 kg/m2 85270.1 g 62 /min 97 % 97 % 130/78 mm[Hg] [facility] 4 10:42:48 Date Recorded Body height Body mass index (BMI) Body weight Heart rate Oxygen saturation Oxygen saturation in Arterial blood by Pulse oximetry Systolic And Diastolic Provider Name and Address Organization Details Last Updated DateTime 4 172.72 cm 29.7 kg/m2 46972.9 5 g 86 /min 99 % 99 % 138/78 mm[Hg] Ace Barnett [facility] 4 09:46:51 Date Recorded Body height Body mass index (BMI) Body weight Oxygen saturation Oxygen saturation in Arterial blood by Pulse oximetry Heart rate Systolic And Diastolic Provider Name and Address Organization Details Last Updated DateTime 5 172.72 cm 29.5 kg/m2 25421.6 4 g 96 % 96 % 68 /min 128/82 mm[Hg] Sweta Keny [facility] 5 14:08:49 Date Recorded Body height Body mass index (BMI) Body weight Heart rate Oxygen saturation Oxygen saturation in Arterial blood by Pulse oximetry Systolic And Diastolic Provider Name and Address Organization Details Last Updated DateTime 4 172.72 cm 30.7 kg/m2 36483.6 6 g 80 /min 98 % 98 % 120/78 mm[Hg] Kacie Corbinmond [facility] 4 09:44:57 Social History Question Answer Notes LastModified by Organizat ion Details LastModified Time Tobacco Smoking Status Never Smoker Not Available [facility] 03/25/2020 03:36:24 What Was The Date Of Your Most Recent Tobacco Screening? 02/13/2025 [email or web address] Information not available 02/13/2025 Sex: Unknown Functional Status Question Answer Note LastModified by Organization D etails LastModified Time Do you or have you ever used any other forms of tobacco or nicotine? No [email or web address] Information not available 02/08/2023 Mental Status None recorded. Family History Nothing Reported. Medical History No medical history recorded. Immunizations Vaccine Type Date Status Note Provider Nam e and Address Organization Details Recorded Time Influenza, split virus, quadrivalent, preservative 8 completed Marcy barone [facility] 03/14/2018 14:35:35 Influenza, split virus, quadrivalent, preservative 0 completed Marcy barone [facility] 06/25/2020 14:50:39 Past Encounters Encounter ID Performer Location Encounter Start Date Encounter Closed Date Diagnosis/Indication Diagnosis SNOMED-CT Code Diagnosis ICD10 Code Diagnosis IMO Codes Diagnosis Note [id number] Chester Pittman [facility] [address] [place] [address] 10/31/2017 15:42:43 10/31/2017 16:58:41 Chest pain 32884480 R07.9 muscular vs cardiac cause cardiac etiology seems very unlikely given overall healthy lifestyle Heartburn 59312839 R12 doubtful he had heartburn given the brevity of his sx. [id number] Chester Pittman [facility] [address] [place] [address] 03/14/2018 14:25:58 03/15/2018 13:49:39 Painless rectal bleeding 483027136 K62.5 will tx with anusol and if any prob will have GI see pt will call me with update in 2 weekds [place] [id number] Chester Pittman [facility] [address] [place] [address] 07/07/2018 11:22:12 07/07/2018 12:36:46 Painless rectal bleeding 106271149 K62.5 has had recurrent rectal bleeding and is now in need [place] y [id number] Chester Pittman [facility] [address] [place] [address] 12/22/2018 11:08:44 12/22/2018 11:39:40 Chronic hoarseness 5471698741 105 R49.0 [id number] Chester Pittman [facility] [address] [place] [address] 01/29/2020 11:40:44 01/29/2020 12:04:54 Tick bite without infection 272860223 T14.8XXA not sure if tick or not, may have just been a bug bite will treat him with doxy though for 7 days given vagueness of when he was bite also given area of bite is swollen and erythemato [id number] Chester Pittman [facility] [address] [facility] [address] 06/25/2020 14:48:32 06/25/2020 15:35:00 Active or passive immunization 450128843 Z23 Adult heal th examination 316594835 Z00.00 doing well and has a great exam Kardia ecg is completely normal with 6 lead ecg lab is needed as this hasnt been done for years [id number] DEMARCO ELMORE [facility] [address] [facility], [place] [address] 01/05/2022 09:18:32 01/05/2022 14:18:40 Palpitations 10919849 R00.2 will f/u with the patient's orders that were scheduled Sinus bradycardia 008415 05 R00.1 normal resting heart rate 50-60 bpm [id number] Chester Pittman DO [facility] [address] [facility], [place] [address] 07/21/2022 12:13:36 07/21/2022 14:00:37 Palpitations 41414754 R00.2 noted ectopics Sinus bradycardia 694956 05 R00.1 stable but certainly low also having ectopics Deep venou s thrombosis 894155018 I82.409 stable and no major issues Hyperkerat otic actinic keratosis 321905589 L57.0 seeing dermatol [id number] Chester Pittman DO [facility] [address] [facility] [address] 08/27/2022 15:06:40 08/27/2022 15:59:23 Essential hypertension 96542437 I10 given excessive high bp we need to start him on a med will use lisinopril [id number] Chester Pittman DO [facility] [address] [facility] [address] 09/29/2022 14:04:32 09/29/2022 14:46:54 Essential hypertension 14280807 I10 given excessive high bp we need to start him on a med will use lisinopril Spasm of back muscles 20 0983351 M62.830 [id number] Chester Pittman DO [facility] [address] [facility] [address] [address] [place] [address] 02/08/2023 14:54:29 02/08/2023 15:31:10 Essential hypertension 68167511 I10 bp is doing well no major issues tolerates lisinopril Palpitations 30973719 R0 0.2 noted ectopics [id number] Chester Pittman [facility] [address] [facility] [address] [address] 08/09/2023 10:26:51 08/09/2023 11:35:45 Active or passive immunization 558142307 Z23 utd Adult heal th examination 516834569 Z00.00 doing well and has a great exam Kardia ecg is completely normal with 6 lead ecg lab is needed as this hasnt been done for years Essential hypertension 21623468 I10 bp is doing well no major issues tolerates lisinopril Aracelis 76171803 R49.0 will first stop the lisinopril and then go from there Fatigue 78583063 R53.83 [id number] Chester Pittman [facility] [address] [facility] [address] [address] 08/24/2023 09:38:56 08/24/2023 09:58:02 Tick bite 84406726 W57.XXXA will set up with elizabeth for the next 30 days will set up with lab work Aracelis 53598943 R49.0 will let MB know and fu with next steps, probable ENT referral, may have him restart his BP medication as well [id number] Chester Pittman [facility] [address] [facility] [address] [address] 04/18/2024 09:27:55 04/18/2024 10:10:14 Essential hypertension 05980708 I10 bp is doing well no major issues tolerates lisinopril Derangemen t of medial meniscus of left knee 2425512959 54527 M23.204 has an equivocal mcmurraywe will have him take ibuprofen 600 tid x 10 days and then we will reassess [id number] Chester Pittman [facility] [address] [facility] [address] 10/31/2024 09:53:50 10/31/2024 15:20:16 Left lateral elbow tendinopathy 1193674295 27995 M77.12 2067911 recommende d ice, heatrest and will start on patient on diclofenac Right inguinal pain 1562 994403 8856099 R10.31 930748 recommende d ice, heatrest and will start patient on diclofenac [id number] DO [facility] [address] [facility] [address] 02/13/2025 13:59:53 02/13/2025 14:52:55 Active or passive immunization 939542788 Z23 utd Depression screening 171 334224 Z13.31 neg Essential hypertension 53447644 I10 bp is doing well no major issues tolerates lisinopril Preventive procedure 169 287173 Z00.00 73051689 doing well and has a great exam Kardia ecg is completely normal with 6 lead ecg reviewed lab Health Concerns Section Related Observation LastModified by Organization Detai ls LastModified Time None Recorded Concern Status LastModified by Organization Details LastModified Time None Recorded Advance Directives Directive None Recorded Payers Insurance Date Sequence Insurance Name Policy Number Policy [place] Covered Member ID Ash[place] Member ID Guarantor Name 02/10/2025 1 [facility] [employer] [facility] (POS[facility] [id number] Joaquín Lundberg [id number] Joaquín Lundberg 02/11/2025 1 [facility] [id number] Kamilah Lundberg [id number] Joaquín Lundberg 01/08/2022 [employer] Joaquín Lundberg Notes Date Note Type Note Provider Name and Address Organization Details Recorded Time 4 text/htm l Annual WellnessReported by PatientSocial/Behavioral HistoryFor diet and nutrition, patient reportshealthy diet. For fracture risk, patient reportsno history of fractures,no recent explained fracture,no sudden unexplained fractures, andno previous musculoskeletal injuries. For physical activity, patient reportsexercises on a regular basis,recent increase in physical activity, andgood physical condition. For additional lifestyle factors, patient reportsno tobacco use,no alcohol intake, andstopped drinking alcohol.Mental Status:For depression risk, patient reportsnever feels sad, empty, or tearful,no loss of interest in activities,no significant changes in weight,no sleep disturbances or insomnia,no agitation,no loss of energy,no feelings of worthlessness or guilt,no thoughts of suicide,no history of depression, andno history of mood disorders.Functional AbilityFor hearing, patient reportsno loss of hearing. For vision, patient reportsno vision problems. HAs noted some hoarse voice repeatedly happening Chester RamezPete Pittman, DO [address] [place], [address], [facility] 08/09/2023 11:20:35 4 text/htm l ROS as noted in the HPI c/o ?tick bite the patient reports that he noted he had a spot on his rib, had been watching for about a week since he noticed a spot on his ribs progressed into a possible bull's eye rashthe patient had a notable macular patch on his left ribcagecenter looks to be a bite chester denies fever, chills, joint pain, generalized fatigue or any symptoms agreed to start on doxy for the next 30 dayswill test him for lyme and anaplasma to identify which is the culprit otherwise doing wellwill let MB know that his BP med was not causing his throat symptoms, even off of it he is still getting the hoarsness of his voice and dry throat DEMARCO ELMORE [address] [place], [address], [facility] 08/24/2023 09:59:21 4 text/htm l Care Management - HypertensionReported by PatientHPIFor self care, patient reportsnot under emotional stress. For severity, patient reportssymptoms are improvinganddoes not interfere with daily activities. For associated symptoms, patient reportsno dizziness,no lightheadedness,no chest pain,no shortness of breath,no palpitations,no edema,no calf muscle cramps,no blurred vision,no confusion,no headaches, andno fatigue.ROS as noted in the HPI no injury but over the last 2 weeks has had pain in his left kneehurts with twisting etctook a lot of ibuprofen yesterday and is better overall Chester Pittman DO [address] [facility], [place], [address], [facility] 04/18/2024 10:08:34 5 text/htm l ROS as noted in the HPI c/o L elbow pain and R knee/R leg pain L elbow painthe patient reports that he has pain with lifting toward the bodythe patient reports it has been going on several monthsif he hits it around the bursa, it really hurtspain with pronationthe patient is R hand dominant the patient denies any sports that are repetitivethe patient does regularly to the gym and does lift, but is careful with weight amountalso doing Vincentian jujitsu the patient reports that his is also having pain with the R knee (less time) probably happened with the Vincentian Jujitsuthe patient was having a lot of pain with lifting the pain is in the right groin muscleprobably the sartorius? vs abductor muscle based on location and pain DEMARCO ELMORE [address] [place], [address], [facility] 10/31/2024 10:16:17 5 text/htm l Care Management - HypertensionReported by PatientHPIFor self care, patient reportsnot under emotional stress. For severity, patient reportssymptoms are improvinganddoes not interfere with daily activities. For associated symptoms, patient reportsno dizziness,no lightheadedness,no chest pain,no shortness of breath,no palpitations,no edema,no calf muscle cramps,no blurred vision,no confusion,no headaches, andno fatigue. Annual WellnessReported by PatientSocial/Behavioral HistoryFor diet and nutrition, patient reportshealthy diet. For fracture risk, patient reportsno history of fractures,no recent explained fracture,no sudden unexplained fractures, andno previous musculoskeletal injuries. For physical activity, patient reportsexercises on a regular basis,recent increase in physical activity, andgood physical condition. For additional lifestyle factors, patient reportsno tobacco use,no alcohol intake, andstopped drinking alcohol.Mental Status:For depression risk, patient reportsnever feels sad, empty, or tearful,no loss of interest in activities,no significant changes in weight,no sleep disturbances or insomnia,no agitation,no loss of energy,no feelings of worthlessness or guilt,no thoughts of suicide,no history of depression, andno history of mood disorders.Functional AbilityFor hearing, patient reportsno loss of hearing. For vision, patient reportsno vision problems.ROS as noted in the HPI Chester Pittman, DO [address] [facility], [place], [address], [facility] 02/13/2025 14:48:45
--- OUTSIDE RECORDS SUMMARY | 2025-03-12 06:05 | XMS_ITS | Encounter Summary ---
Author Organization [facility] Address [address] [address] Phone Care Team Providers Care Infusion Therapy Nurse Name Role Phone Chester Pittman DO Primary Care Provider Zain Chester Myrick DO Unavailable Chester Pittman DO Unavailable Encounter Details Date Type Department Care Team (Late st Contact Info) Description 11/14/2017 Ancillary Orders [facility] External Provider Virtual Department [address] [place] [address] Mariana Mahan PA-C [address] [place] [address] Social History Tobacco Use Types Packs/Day Years [...] on filedocumented in this encounter Care Teams Infusion Therapy Nurse Relationship Specialty Start Date End Date Chester Pittman DO [email or web address] PCP - General 03/08/17 Chester Pittman DO [address] [place] [address] [place] [address] [email or web address] Insurance Assigned Provider 08/29/1910/31 Chester Pittman DO [address] [place] [address] [email or web address] Insurance Assigned Provider 08/27/23 documented as of this encounter Additional Source Comments The information contained in this document represents components of the legal health record. It is not the complete legal health record.[facility]
== END 2025-03-12 06:03 | disposition home or self-care (01) ==
LOC: HO.XRAY 06:02
PROVIDERS: PCP Internal Medicine; Visit Provider Internal Medicine
DX: M25.561 Pain in right knee (principal)
CPT/HCPCS: 73562

== ENCOUNTER → 2025-03-12 06:06 | Outpatient (BNV) | payer BC, SELFPAY | PROVIDERS: PCP Internal Medicine; Visit Provider Radiology Diagnostic Radiology | DX: M25.561 Pain in right knee (principal) | CPT/HCPCS: 73562 ==

== ENCOUNTER 2025-03-31 11:46 | Outpatient (REF) | payer BC, SELFPAY ==
--- NOTE | ~2025-03-31 | MR_ITS ---
EXAMINATION: MR KNEE WITHOUT CONTRAST, RIGHT CLINICAL INFORMATION: Chronic instability, posterior knee pain COMPARISON: X-ray 03/12/2025 TECHNIQUE: MRI of the knee without contrast was performed using routine sequences on a high-field scanner. FINDINGS: MENISCI: Medial Meniscus: Intrasubstance degenerative signal in the posterior horn. No tear is seen. Lateral Meniscus: Intact LIGAMENTS: Cruciate: Intact Collateral: MCL is intact. Biceps femoris, fibular collateral ligament is intact. There is mild edema signal between the iliotibial band and the lateral femoral condyle, which could represent sequela of friction syndrome in the appropriate clinical circumstance. EXTENSOR MECHANISM: Intact . Possible mild distal quadriceps tendinosis. ARTICULAR CARTILAGE/BONE: Patellofemoral Compartment: Mild arthritis. Chondromalacia and subchondral cyst/edema in the medial patellar facet. Medial Compartment: Mild arthritis . Weightbearing medial femoral condyle chondromalacia subchondral cyst/edema. Lateral Compartment: No significant chondral loss No fracture No aggressive marrow replacing lesion. JOINT FLUID AND BURSAE: Small joint fluid. No significant Valadez's cyst. Subcutaneous edema. MR/MR knee RT wo con IMPRESSION: * Menisci appear intact without evidence of discrete tear. * Findings associated with iliotibial band, detailed above, could represent sequela of friction syndrome and appropriate clinical circumstance. * Mild patellofemoral and medial compartment arthritis. * Additional note as above. Electronically signed by: Tio Moran MD 04/02/2025 07:46 AM [id number]
--- OUTSIDE RECORDS SUMMARY | 2025-03-31 11:50 | XMS_ITS | Encounter Summary ---
Author Organization [facility] Address [address] [address] Phone Care Team Providers Care Sample Carrier Name Role Phone Chester Pittman DO Primary Care Provider [phone] Zain Chester Myrick DO Unavailable Chester Pittman DO Unavailable Encounter Details Date Type Department Care Team (Late st Contact Info) Description 11/01/2017 Ancillary Orders [facility] External Provider Virtual Department [address] [place] [address] Mariana Mahan PA-C [address]. [address] [place] [address] [email or web address] Social History Tobacco Use Types Packs/Day Years [...] on filedocumented in this encounter Care Teams Sample Carrier Relationship Specialty Start Date End Date Chester Pittman DO [email or web address] PCP - General 03/08/17 Chester Pittman DO [address] [facility] [place] [address] [email or web address] Insurance Assigned Provider 08/29/[birth year]10/31 Chester Pittman DO [address] [place] [address] [email or web address] Insurance Assigned Provider 08/27/23 documented as of this encounter Additional Source Comments The information contained in this document represents components of the legal health record. It is not the complete legal health record.[facility]
--- OUTSIDE RECORDS SUMMARY | 2025-03-31 11:50 | XMS_ITS | Encounter Summary ---
Author Organization [facility] Address [address] [address] Phone Care Team Providers Care Staffing Account Manager Name Role Phone Chester Pittman DO Primary Care Provider [phone] Chester Pittman DO Unavailable Encounter Details Date Type Department Care Team (Late st Contact Info) Description 12/07/2024 Procedure Pass [facility] Endoscopy Admitting Dept Virtual Department [address] [place] [address] Social History Tobacco Use Types Packs/Day Years [...] on filedocumented in this encounter Care Teams Staffing Account Manager Relationship Specialty Start Date End Date Chester Pittman DO [email or web address] PCP - General 03/08/17 Chester Pittman DO [address] [place] [address] [email or web address] Insurance Assigned Provider 08/27/23 documented as of this encounter Additional Source Comments The information contained in this document represents components of the legal health record. It is not the complete legal health record.[facility]
--- OUTSIDE RECORDS SUMMARY | 2025-03-31 11:50 | XMS_ITS | Data Portability ---
Author Organization [facility] Telehealth Patient Home Address [address] [place] [address] Assessment Encounter Date Assessment Date Assessment LastModified by Organization Details LastModified Time 04/18/2024 04/18/2024 [id number] [place] [id number] (MARKETING SERVICES COORDINATOR) MDM MODERATE MUST MEET 2 OUT OF [...] igg+igm, serum, reflex western blot 2023 024 [facility], [address] [place] [address], [place], [address], 4 11:18:26 anaplasma phagocytoph ilum (hga/hge) igg+igm Ab, serum 2023 024 [facility], [address] [place] [address], [place], [address], 4 11:40:05 testosteron e, total, serum 2023 024 [facility], [address] [place], [address], 4 11:14:32 Referral None recorded. Procedures None recorded. Surgeries None recorded. Imaging None recorded. Medication Orders diclofenac sodium 75 mg tablet,antonieta yed release [address] [id number], [address] [place], [place], [id number], 5 14:05:01 doxycycline hyclate 100 mg tablet [address] [id number], [address] [place], [place], [id number], 5 14:05:19 Patient TargetsNo targets recorded. Patient Instructions Encounter Date Encounter Id Patient Instructions Last Modified By Organization Details Last Modified Time 08/09/2023 [id number] [email or web address]: care instructions Not available 08/09/2023 11:18:01 Reason for Referral None Reported. Results Created Date Observation Date Name Description Value Unit Range Abnormal Flag Note LastModifiedBy Organization Detail LastModifiedTime 03/12/2003/12/2025 XR, knee, 3 view No observ ation record ed. [email or web address] [facility] (Medical Records) [address] [place] [address], [address], 03/12/2025 11:35:52 03/18/2003/18/2025 CT, heart , w/o contr ast, w/ coron hyacinth calci um score No observ ation record ed. [email or web address] [facility] [address] [facility] [address], [place], [address], 03/19/2025 15:57:54 Result Notes None recorded. 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 progressi ng to the point of axilosubc lavian vein thrombosi s PAT Feliciano [address] [place], [address], [facility] 8 16:10:38 Palpitat ions 16585309 Active 2021 DEMARCO ELMORE [address] [place] [address], [address], [facility] 2 14:58:36 Sinus bradycar jesse 11652412 Active 2021 DEMARCO ELMORE [address] [place] [address], [address], [facility] 2 09:52:33 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 Chester Pittman DO [address] [place] [address], [address], [facility] 3 12:42:13 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 Chester Pittman DO [address] [place] [address], [address], [facility] 5 14:45:08 Spasm of back muscles 107180451 Active 2022 Chester Pittman DO [address] [place] [address], [address], [facility] 3 14:38:00 Allergic urticari a 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 Active 2022 Chester Pittman DO [address] [place] [address], [address], [facility] 3 22:44:51 Hoarse 30214450 Active 2023 Chester Pittman DO [address] [place] [address], [address], [facility] 4 11:15:49 Fatigue 02644906 Active 2023 Chester Pittman, [address] [place] [address], [address], [facility] 4 11:17:53 Derangem ent of medial meniscus of left knee 92856059229 9108 Active 2023 Chester Pittman, DO [address] [place] [address], [address], [facility] 4 09:59:11 Left lateral elbow tendinop athy 02809563849 9100 Active 2024 DEMARCO ELMORE [address] [place] [address], [address], [facility] 5 10:12:44 Right inguinal pain 84441263416 746747 Active 2024 DEMARCO ELMORE [address] [place] [address], [address], [facility] 5 10:14:11 Bilatera l lateral elbow tendinop athy 26516059254 420132 Active 2024 Chester Pittman DO [address] [place] [address], [address], [facility] 5 14:49:33 Hypercho lesterol emia 48057876 Active 2024 Chester Pittman DO [address] [place] [address], [address], [facility] 5 14:54:05 Pain of right knee joint 78576475525 4100 Active 2024 Chester Pittman DO [address] [place] [address], [address], [facility] 5 14:56:15 Instabil ity of joint of right knee 15321442576 49974 Active 2024 Chester Pittman DO [address] [place] [address], [address], [facility] 11:36:16 Problem Notes None recorded. Procedures Surgical History Date Name Laterality Status Provider Name and Address Organization Details Recorded Time 08/25/19 19 colonoscopy completed Chester MyrickPete Smithdioni, DO [address] [facility], [place], [address], [facility] 08/24/2018 19:16:20 Imaging Results [...] Updated DateTime 4 171.45 cm 30.2 kg/m2 26715.1 g 62 /min 97 % 97 % 130/78 mm[Hg] Kacie Del Rio [facility] 4 10:42:48 Date Recorded Body height Body mass index (BMI) Body weight Heart rate Oxygen saturation Oxygen saturation in Arterial blood by Pulse oximetry Systolic And Diastolic Provider Name and Address Organization Details Last Updated DateTime 4 172.72 cm 29.7 kg/m2 78826.9 5 g 86 /min 99 % 99 % 138/78 mm[Hg] Ace Barnett [facility] 4 09:46:51 Date Recorded Body height Body mass index (BMI) Body weight Oxygen saturation Oxygen saturation in Arterial blood by Pulse oximetry Heart rate Systolic And Diastolic Provider Name and Address Organization Details Last Updated DateTime 5 172.72 cm 29.5 kg/m2 16109.6 4 g 96 % 96 % 68 /min 128/82 mm[Hg] Sweta Bustillo [facility] 5 14:08:49 Date Recorded Body height Body mass index (BMI) Body weight Heart rate Oxygen saturation Oxygen saturation in Arterial blood by Pulse oximetry Systolic And Diastolic Provider Name and Address Organization Details Last Updated DateTime 4 172.72 cm 30.7 kg/m2 04147.6 6 g 80 /min 98 % 98 % 120/78 mm[Hg] Kacie Del Rio [facility] 4 09:44:57 Social History Question Answer Notes LastModified by Organizat ion Details LastModified Time Tobacco Smoking Status Never Smoker Not Available [employer] 03/25/2020 03:36:24 What Was The Date Of Your Most Recent Tobacco Screening? 02/13/2025 [email or web address] Information not available 02/13/2025 Sex: Unknown Functional Status Question Answer Note LastModified by Organization D etails LastModified Time Do you or have you ever used any other forms of tobacco or nicotine? No [email or web address] Information not available 02/08/2023 Mental Status None recorded. Family History Nothing Reported. Medical History No medical history recorded. Immunizations Vaccine Type Date Status Note Provider Nam e and Address Organization Details Recorded Time Influenza, split virus, quadrivalent, preservative 8 completed Marcy barone [facility] 03/14/2018 14:35:35 Influenza, split virus, quadrivalent, preservative 0 completed Marcy barone [facility] 06/25/2020 14:50:39 Past Encounters Encounter ID Performer Location Encounter Start Date Encounter Closed Date Diagnosis/Indication Diagnosis SNOMED-CT Code Diagnosis ICD10 Code Diagnosis IMO Codes Diagnosis Note [id number] Chester Pittman [facility] [address] [place] [address], [place] [address] 10/31/2017 15:42:43 10/31/2017 16:58:41 Chest pain 23635621 R07.9 muscular vs cardiac cause cardiac etiology seems very unlikely given overall healthy lifestyle Heartburn 72657030 R12 doubtful he had heartburn given the brevity of his sx. [id number] Chester Pittman DO [facility] [address] [facility], [place] [address] 03/14/2018 14:25:58 03/15/2018 13:49:39 Painless rectal bleeding 249368079 K62.5 will tx with anusol and if any prob will have GI see pt will call me with update in 2 weekds or if [place] [id number] Chester Pittman [facility] [address] [facility], [place] [address] 07/07/2018 11:22:12 07/07/2018 12:36:46 Painless rectal bleeding 385314992 K62.5 has had recurrent rectal bleeding and is now in need of a [place]oscop y [id number] Chester Pittman [facility] [address] [place] [address] 12/22/2018 11:08:44 12/22/2018 11:39:40 Chronic hoarseness 0703245432 105 R49.0 [id number] Chester Pittman DO [facility] [address] [place] [address] 01/29/2020 11:40:44 01/29/2020 12:04:54 Tick bite without infection 796621767 T14.8XXA not sure if tick or not, may have just been a bug bite will treat him with doxy though for 7 days given vagueness of when he was bite also given area of bite is swollen and erythemato [id number] Chester Pittman DO [facility] [address] [place] [address] 06/25/2020 14:48:32 06/25/2020 15:35:00 Active or passive immunization 864166215 Z23 Adult heal th examination 629455415 Z00.00 doing well and has a great exam Kardia ecg is completely normal with 6 lead ecg lab is needed as this hasnt been done for years [id number] DEMARCO ELMORE [facility] [address] [place] [address] 01/05/2022 09:18:32 01/05/2022 14:18:40 Palpitations 15175055 R00.2 will f/u with the patient's orders that were scheduled Sinus bradycardia 682472 05 R00.1 normal resting heart rate 50-60 bpm [id number] Chester Pittman [facility] [address] [place] [address] 07/21/2022 12:13:36 07/21/2022 14:00:37 Palpitations 63124321 R00.2 noted ectopics Sinus bradycardia 545914 05 R00.1 stable but certainly low also having ectopics Deep venou s thrombosis 867098843 I82.409 stable and no major issues Hyperkerat otic actinic keratosis 084472360 L57.0 seeing dermatol [id number] Chester Pittman [facility] [address] [facility] [address] [address] 08/27/2022 15:06:40 08/27/2022 15:59:23 Essential hypertension 76314808 I10 given excessive high bp we need to start him on a med will use lisinopril [id number] Chester MyrickPete Zain [facility] [address] [facility] [address] [place] [facility] [place] [place] 7 09/29/2022 14:04:32 09/29/2022 14:46:54 Essential hypertension 04147085 I10 given excessive high bp we need to start him on a med will use lisinopril Spasm of back muscles 20 6290208 M62.830 [id number] Chester Pittman [facility] [address] [facility] [address] [address] 02/08/2023 14:54:29 02/08/2023 15:31:10 Essential hypertension 15105466 I10 bp is doing well no major issues tolerates lisinopril Palpitations 22839342 R0 0.2 noted ectopics [id number] Chester Pittman [facility] [address] [facility] [address] [place] [facility] [place] [place] [place] [address] 08/09/2023 10:26:51 08/09/2023 11:35:45 Active or passive immunization 869982879 Z23 utd Adult heal th examination 395571087 Z00.00 doing well and has a great exam Kardia ecg is completely normal with 6 lead ecg lab is needed as this hasnt been done for years Essential hypertension 12090594 I10 bp is doing well no major issues tolerates lisinopril Hoarse 97529805 R49.0 will first stop the lisinopril and then go from there Fatigue 85430071 R53.83 [id number] Chester Pittman [facility] [address] [facility] [address] [address] 08/24/2023 09:38:56 08/24/2023 09:58:02 Tick bite 91093055 W57.XXXA will set up with elizabeth for the next 30 days will set up with lab work Aracelis 14390027 R49.0 will let MB know and fu with next steps, probable ENT referral, may have him restart his BP medication as well [id number] Chester Pittman DO [facility] [address] [facility],[place] [address] 04/18/2024 09:27:55 04/18/2024 10:10:14 Essential hypertension 26607064 I10 bp is doing well no major issues tolerates lisinopril Derangemen t of medial meniscus of left knee 6333642949 93129 M23.204 has an equivocal mcmurraywe will have him take ibuprofen 600 tid x 10 days and then we will reassess [id number] Chester Pittman [facility] [address] [facility],[place] [address] 10/31/2024 09:53:50 10/31/2024 15:20:16 Left lateral elbow tendinopathy 2296971494 02509 M77.12 2244372 recommende d ice, heatrest and will start on patient on diclofenac Right inguinal pain 1562 960356 1942319 R10.31 519958 recommende d ice, heatrest and will start patient on diclofenac [id number] Chester Pittman [facility] [address] [facility],[place] [address] 02/13/2025 13:59:53 02/13/2025 14:52:55 Active or passive immunization 477913743 Z23 utd Depression screening 171 525993 Z13.31 neg Essential hypertension 21987306 I10 bp is doing well no major issues tolerates lisinopril Preventive procedure 169 361873 Z00.00 77560781 doing well and has a great exam [...] [place] Member ID Guarantor Name 02/10/2025 1 [facility] (POS) [id number] Joaquín Lundberg [id number] Joaquín Lundberg 02/11/2025 1 [facility] (HMO) [id number] Kamilah Lundberg [id number] Joaquín [place] Tamika 01/08/2022 [facility] Department Joaquín Lundberg Notes Date Note Type [...] noted some hoarse voice repeatedly happening Chester Pittman, DO [address] [facility], [place], [address], [facility] 08/09/2023 11:20:35 4 text/htm [...] voice and dry throat DEMARCO ELMORE [address] [place], [address], [facility] 08/24/2023 09:59:21 4 text/htm [...] is better overall Chester Pittman DO [address] [place], [address], [facility] 04/18/2024 10:08:34 5 text/htm [...] but is careful with weight amountalso doing [place] juWhiteyboardtsu the patient reports that his is also having pain with the R knee (less time) probably happened with the [place] Jujitsuthe patient was having a lot of pain with lifting the pain is in the right groin muscleprobably the sartorius? vs abductor muscle based on location and pain DEMARCO ELMORE [address] [place], [address], [facility] 10/31/2024 10:16:17 5 text/htm [...] in the HPI Chester Pittman, DO [address] [place], [address], [facility] 02/13/2025 14:48:45
--- OUTSIDE RECORDS SUMMARY | 2025-03-31 11:50 | XMS_ITS | Encounter Summary ---
Author Organization [facility] Address [address] [address] Phone Care Team Providers Care Ending Machine Operator Name Role Phone Chester Pittman DO Primary Care Provider [phone] Zain Chester Myrick DO Unavailable Chester Pittman DO Unavailable Encounter Details Date Type Department Care Team (Late st Contact Info) Description 11/14/2017 Ancillary Orders [facility] External Provider Virtual Department [address] [place] [address] Mariana Mahan PA-C [address] [place] [address] Social History Tobacco Use Types Packs/Day Years [...] on filedocumented in this encounter Care Teams Ending Machine Operator Relationship Specialty Start Date End Date Chester Pittman DO [email or web address] PCP - General 03/08/17 Chesetr Pittman DO [address] [facility] [place] [address] [email or web address] Insurance Assigned Provider 08/29/1910/31 Chester Pittman DO [address] [place] [address] [email or web address] Insurance Assigned Provider 08/27/23 documented as of this encounter Additional Source Comments The information contained in this document represents components of the legal health record. It is not the complete legal health record.[facility]
--- OUTSIDE RECORDS SUMMARY | 2025-03-31 11:50 | XMS_ITS | Clinical Summary ---
Author Organization [facility] Address [address] [address] Phone Care Team Providers Care Hair Machine Operator Name Role Phone Emily Rajan DO Primary Care Provider [phone] Emily Rajan DO Unavailable Allergies Active Allergy Reactions Criticality Noted Date Comments Other 12/04/2024 Almonds wheezing Medications amLODIPine (NORVASC) 5 MG tablet Take by mouth daily. 11/15/2024 Active diclofenac sodium (VOLTAREN) 75 MG EC tablet Take 75 mg by mouth 2 (two) times a day. 11/30/2024 Active lisinopril (PRINIVIL,ZESTRI L) 5 MG tablet Take 5 mg by mouth daily. Active Social History Tobacco Use Types Packs/Day Years [...] , 03/09/2018, 07/11/2017 COVID-19 VACCINE (1 - 2024-2 6 season) 2025 LIPID PANEL 08/01/2028 08/02/2023, 09/28/2022, 09/28/2022 Adult Td,Tdap Booster 08/27/2032 08/27/2022 COLONOSCOPY 12/07/2034 12/07/2024 COLORECTAL CANCER SCREENING 12/07/2034 RSV VACCINE (1 - 1-dose 75+ series) 2042 SMOKING STATUS SCREENING (On ce After 26 [...] Procedure Name Priority Date/Time Associated Diagnosis Comments ENDOSCOPY, COLON 12/07/2024 8:30 AM EDT from Last 3 Months or Most Recently Relevant to Health Maintenance Results * ENDOSCOPY, COLON (12/07/2024 8:30 AM EDT) Narrative Transcriptions Martell Hernandez MD - 12/07/2024 8:30 AM EDT [facility] Patient Name: Joaquín Aguila Attending MD:: MARTELL HERNANDEZ MD, Procedure Date: 12/07/2024 8:30 AM Date of : 1965 Age: 59 Admit Type: Outpatient Gender: Male Room: [place] [address] Referring MD: EMILY RAJAN, DO Exam Type: Colonoscopy Indications: Screening patient [...] monitored continuously. The Olympus adult variable colonoscope [id number] #1 was introduced through the anus and [...] 8:30 AM Procedure Code(s): --- Professional --- 63318, Colonoscopy, flexible; with removal of tumor(s), polyp(s), or other lesion(s) by snare technique --- Technical --- 32393, Colonoscopy, flexible; with removal of tumor(s), polyp(s), or other lesion(s) by snare technique Diagnosis Code(s): --- Professional --- Z80.0, Family history of malignant neoplasm of digestive organs D12.2, Benign neoplasm of ascending colon --- Technical --- Z80.0, Family history of malignant neoplasm of digestive organs D12.2, Benign neoplasm of ascending colon CPT copyright 2021 [employer]. All rights reserved. The codes documented in this report are preliminary and upon tech intern reviewmay be revised to meet current compliance requirements. Procedure Date: 12/07/2024 8:30:58 AM [address] [place] [address] us Emily Rajan DO GI PROCEDURE ORDERABLES Final Re sult from Last 3 Months or Most Recently Relevant to Health Maintenance Insurance [facility] [place] [address] Member Subscriber Plan / Payer (Ef fective 2021-Present) Name:Joaquín Aguila Relation to Subscriber:Spouse Name:KAMILAH AGUILA Date of :1900 Address: [address] [place] Payer ID:[id number] (NAIC) Type:HMO Address: [facility] [address] [place], [place] Member Subscriber Plan / Payer (Ef fective 2021-Present) Name:TamikaJoaquín Relation to Subscriber:Spouse Name:KAMILAH AGUILA Date of :1900 Address: [address] [place] Payer ID:[id number] (NAIC) Type:HMO Address: [address] Care Teams Hair Machine Operator Relationship Specialty Start Date End Date Emily Rajan DO [email or web address] PCP - General 03/08/17 Emily Rajan DO [address] [place] [address] [email or web address] Insurance Assigned Provider 08/27/23 Additional Source Comments The information contained in this document represents components of the legal health record. It is not the complete legal health record.[facility]
== END 2025-03-31 11:47 | disposition home or self-care (01) ==
LOC: HO.MRI 11:46
PROVIDERS: Visit Provider Internal Medicine
DX: M23.51 Chronic instability of knee, right knee (principal)
CPT/HCPCS: 73721

== ENCOUNTER → 2025-03-31 11:48 | Outpatient (BNV) | payer BC, SELFPAY | PROVIDERS: Visit Provider Radiology Diagnostic Ultrasound | DX: M23.51 Chronic instability of knee, right knee (principal); M25.561 Pain in right knee | CPT/HCPCS: 73721 ==